=== PATIENT | female | born 1945 | race Caucasian/White ===

== ENCOUNTER → 2019-08-26 | Day surgery (SDC) | payer OTHER, MEDICARE ==
--- NOTE | 2019-08-26 11:16 | RAD REPORT ---
EXAM DESCRIPTION: Ultrasound-guided vacuum assisted right breast core biopsy CLINICAL HISTORY: Breast mass N63.0 COMPARISON: BREAST/AXILLA, LIMITED dated 08/16/2016; Follow Up Breast Axilla Comp dated 08/17/2019; 3D SCR ELI BILAT W/CAD dated 08/06/2019 FINDINGS: Informed consent was obtained and time-out was performed. The patient's right breast was prepped and draped in the usual sterile fashion. 1% lidocaine was used for local anesthetic purposes. Utilizing aseptic technique and ultrasound guidance, a 12 gauge vacuum assisted core biopsy device wa s used to obtain 2 core specimens through the mass of interest. A post biopsy clip was then placed. All collected material was sent for cytology. Patient tolerated procedure well. IMPRESSION: Successful ultrasound guided vacuum assisted right breast mass biopsy.
== END ==
LOC: DS 09:42
PROVIDERS: ATTEND Specialist
DX: C50.911 Malignant neoplasm of unspecified site of right female breast (principal); Z17.0 Estrogen receptor positive status [ER+]
CPT/HCPCS: 19083; 88305

== ENCOUNTER 2019-09-07 06:20 | Day surgery (SDC) | payer OTHER, MEDICARE ==
--- NOTE | 2019-09-04 16:40 | RAD REPORT ---
EXAM DESCRIPTION: Krystal Rosado (2 Views)09/04/2019 4:24 pm CLINICAL HISTORY: COPD Preop for lung surgery COMPARISON: None FINDINGS: The lungs are markedly hyperaerated. The lungs appear clear of acute infiltrate. The heart is normal size IMPRESSION: COPD without visualization of an acute abnormality
[2019-09-04 17:00] LABS: Absolute Lymphocytes (CBC) 2.8 K/uL (0.7-4.9); Hematocrit 46.5 % (36.0-45.0); Lymphocytes % 24.6 % (15.3-44.8); MPV 8.3 fL (7.6-11.3); RBC Red Blood Cell Count 4.83 M/uL (3.86-4.86)
[2019-09-04 17:15] LABS: Potassium 3.9 mmol/L (3.5-5.1)
[2019-09-07] MEDS ORDERED: Ringers Lactate 1,000 ML IV ONE (06:47)
[2019-09-07] MEDS ORDERED: CIPROFLOXACIN 400mg IV 400 MG/200 ML BAG IV ONE (06:47)
[2019-09-07] MEDS ORDERED: propofoL 200 MG/20 ML VIAL IV ONE (09:46)
[2019-09-07] MEDS ORDERED: FENTANYL CITR 100 MCG/2 ML ONE (09:46)
[2019-09-07] MEDS ORDERED: LIDOCAINE 1% MPF 5 ML VIAL ONE (09:46)
[2019-09-07] MEDS: METHYLENE BLUE 0.5% 10 ML AMP ONE ×2 (10:16→10:26)
[2019-09-07] MEDS ORDERED: KETOROLAC 30 MG/ML INJ ONE (10:18)
[2019-09-07] MEDS ORDERED: dexAMETHasone 10 MG/ML VIAL ONE (10:18)
[2019-09-07] MEDS ORDERED: NS 0.9% VIAL 10 ML ONE (10:27)
[2019-09-07] MEDS ORDERED: EPHEDRINE SULF 50 MG/ML VIAL ONE (10:27)
[2019-09-07] MEDS ORDERED: ONDANSETRON 4 MG/2 ML VIAL ONE ×2 (10:27→12:12)
[2019-09-07] MEDS: Ringers Lactate 1,000 ML IV ONE ×2 (11:00→11:20)
[2019-09-07] MEDS ORDERED: Phenylephrine HCl 10 MG/ML 1 ML VIAL ONE (11:04)
--- NOTE | 2019-09-07 11:26 | P.BOP ---
Preoperative diagnosis: right infiltrating ductal carcinoma Postoperative diagnosis: same Primary procedure: 1. Right breast wide lumpectomy neddle localized Secondary procedure: 2. Right axillary lymphnode dissection Engraver Signature: Manisha Tristan) Estimated blood loss: <10cc Specimen: axillary dissectiion, right breast mass Findings: Lesion within the specimen by Dr Montes De Oca, multiple axillary LN by dr Balbuena Anesthesia: General Complications: None Drain(s): SOTERO drain Transferred to: Recovery Room Condition: Good
--- NOTE | 2019-09-07 11:35 | RAD REPORT ---
EXAM DESCRIPTION: NM - Lymphoscintigraphy - 09/07/2019 7:41 am CLINICAL HISTORY: Breast cancer COMPARISON: None. TECHNIQUE: Four injections of 0.1 millicuries technetium filtered sulfur colloid administered into t he the moose arerolar region of the right breast. The injections were placed at Twelve o'clock, 3 o'cl ock, 6 o'clock and 9 o'clock positions. Subsequently a scintigram was obtained which demonstrated the radiotracer within these locations. IMPRESSION: Right breast lymphoscintigram
--- NOTE | 2019-09-07 11:37 | RAD REPORT ---
EXAM DESCRIPTION: US - Brst,Preop NL Wire Init w/Guid - 09/07/2019 8:00 am CLINICAL HISTORY: Breast cancer FINDINGS: The skin, subcutaneous tissues and breast tissue were anesthetized with lidocaine. Under sonographic guidance a Kopan's hook wire was placed into the 1.3 centimeter mass within the out er right breast. The patient then left for the surgical department IMPRESSION: Ultrasound-guided needle wire localization of a right breast mass
[2019-09-07] MEDS: HYDROMORPHONE HCL 2 MG/ML inj ONE ×4 (12:05→12:20)
--- NOTE | 2019-09-07 12:10 | RAD REPORT ---
EXAM DESCRIPTION: US - Surgical Specimen - 09/07/2019 11:19 am CLINICAL HISTORY: Breast cancer IMPRESSION: Ultrasound demonstrates the hypoechoic mass to be within the resected surgical specimen
[2019-09-07] MEDS ORDERED: CODEINE 30MG/APAP 300MG TAB ONE (13:03)
[2019-09-07 13:33] VITALS: TEMP 96.5
[2019-09-07 14:06] VITALS: BP 105/64; O2SAT 95
--- NOTE | 2019-09-07 21:18 | DS ---
Date of Discharge: 09/07/2019 Diagnosis: Right breast cancer. Procedure: 1.Right wide lumpectomy. 2.Right axillary lymph node dissection. Anesthesia: General plus local. Disposition: The patient will be discharged home. Activity: As tolerated, no heavy lifting Plan: Follow up in my office in 1 week. Call for appointment [phone]. Keep area dry until she see m kari again. Discharge Medications: Include Tylenol No. 3 q.4 hours p.r.n. pain and Cipro 500 p.o. q.12. The [facility] ient was instructed to record SOTERO output every 24 hours. DENNY/KINDRA Voice ID: [id number] Report ID: [id number]
--- NOTE | 2019-09-07 21:28 | OP ---
Date of Procedure: 09/07/2019 Surgeon: Clayton Arango MD Engineer Automated Equipment: Manisha Toscano. Preoperative Diagnosis: Right infiltrating ductal carcinoma. Postoperative Diagnosis: Right infiltrating ductal carcinoma. Procedures: 1.Right breast wide lumpectomy, needle localized. 2.Right axillary lymph node dissection. Specimen: Right breast and axillary lymph node. Findings: We sent the axillary lymph node to Dr. Sánchez, she sees at least 6-7 lymph nodes in that area and then Dr. Ramirez reviewed the needle within the specimen. Anesthesia: General plus local. Drains: SOTERO #10 for the axillary dissection. Indications: This is the case of a 74-year-old patient recently diagnosed with right breast cancer. The benefits, alternatives, and risks of excision in the process of right breast lumpectomy versus m astectomy. She preferred a lumpectomy with radiation therapy eventually and she also selected sentin el lymph node, possible axillary dissection with benefits, alternatives, and risks including, but not limited to infection, bleeding, damage to adjacent structures, anesthesia complication, chronic numb ness, chronic pain, arm edema, recurrence, OH, and even . She also understands this may not rel ieve any symptoms. She might need more than one surgical intervention. She understood, signed the c onsent. Description Of Procedure: The patient came this morning for 2 procedures; first, localization of the lump with the wire by Dr. Ramirez and also they injected the patient for sentinel lymph node localiz ation. The wire was left intact to avoid any dislodgement. The patient came to the operating room, placed in supine position. Anesthesia was done without complication. A blue dye was injected over t he area and then massaged for about 15 minutes. We put the probe in the area of the axilla. The num bers are not coming back the way we want to. We can barely get any trace of that material on the axi llary region. The patient may need to do further axillary dissection, but we are going to try in the area once again once we are scrubbed. The area was scrubbed in the usual sterile fashion. A time-o ut was called. At that moment, we proceeded to make a small incision of the axillary hairline. The probe was placed over that area, the gamma probe, but once again no signal found. We went all the wa y deeper in the axillary fat pad, no signal found. In that case, we cannot proceed the sentinel lymp h node, so we proceeded to do an axillary dissection of the area. We identified the pectoralis major removed level 1, level 2 axillary lymph nodes making sure the nerves were protected at all time, paresh g thoracic and thoracodorsal nerve, and also axillary vein and artery were protected at all times. W e sent the specimen to pathologist to verify there are lymph nodes in that area. They see at least 7 in that region and they still have more specimen to go. So at that moment, I irrigated the area due to the axillary dissection, we will leave a SOTERO drain exiting to 1 of the skin sites and secured in p lace with 3-0 nylon and closed the area with 3-0 chromic and then [place]. The area of lumpectomy, w e proceeded to put an incision over the area of the wire. This patient had a wide lumpectomy since w e are dealing with breast cancer. We put incision all the way down to the breast tissue and we proce eded to do a removal excision of the lump. When we sent the specimen out, the specimen and the needl es are intact by Dr. Ramirez. At that moment, we irrigated the area, obtained hemostasis again and t hen after that closed the area with 3-0 chromic and 4-0 PDS subcuticular fashion. Sponge count, inst rument counts were correct. Patient tolerated the procedure well. Patient is in her way to recovery in stable condition. DENNY/KINDRA Voice ID: [id number] Report ID: [id number]
--- NOTE | 2019-09-08 12:12 | EKG ---
Test Date: 2019-09-04 Test Time: 16:00:17 [employer]: HOLLIE MEASUREMENT RESULTS: Intervals: Rate: 69 HI: 184 QRSD: 86 QT: 420 QTc: 450 [place]: P: 81 HI: 184 QRS: -65 T: 84 INTERPRETIVE STATEMENTS: Normal sinus rhythm Left axis deviation Septal infarct, age undetermined Abnormal ECG No previous ECG available for comparison Electronically Signed On 09-08-19 12:09:38 CDT by Vic Araiza
== END 2019-09-07 14:11 | disposition home or self-care (01) ==
LOC: OR 06:20 → EDSTATUS 09:45 → OR 14:11
PROVIDERS: ATTEND Surgery
PROC: 0HBT0ZZ Excision of Right Breast, Open Approach (ICD-10-PCS; principal; 2019-09-07 09:45)
DX: C50.911 Malignant neoplasm of unspecified site of right female breast (principal); Z17.0 Estrogen receptor positive status [ER+]; Z11.59 Encounter for screening for other viral diseases; I10 Essential (primary) hypertension; E78.00 Pure hypercholesterolemia, unspecified; F32.9 Major depressive disorder, single episode, unspecified; F41.9 Anxiety disorder, unspecified; Z88.0 Allergy status to penicillin; Z88.2 Allergy status to sulfonamides; Z91.041 Radiographic dye allergy status; Z85.6 Personal history of leukemia; Z83.3 Family history of diabetes mellitus; Z82.49 Family history of ischemic heart disease and other diseases of the circulatory system
CPT/HCPCS: 93005; 85025; 80048; 36415; 88307; 88333; 71046; 76098; 19285; 78195; 19302; 38900; U0002; J2704; J2370; J1170; J3010; J1100; J7120 ×2; J2405 ×2; J0744; A9541; 88305

== ENCOUNTER 2021-11-12 10:28 | Inpatient (IN) | payer OTHER, MEDICARE ==
[2021-11-12 11:02] LABS: Absolute Lymphocytes (CBC) 1.7 K/uL (0.7-4.9); Hematocrit 43.5 % (36.0-45.0); Lymphocytes % 13.9 % (15.3-44.8); MCV 97.2 fL (80-100); RBC Red Blood Cell Count 4.48 M/uL (3.86-4.86)
--- NOTE | 2021-11-12 11:27 | RAD REPORT ---
EXAM DESCRIPTION: RAD - Chest Single View - 11/12/2021 11:22 am CLINICAL HISTORY: CONGESTION COMPARISON: Two view chest 11/10/2021 and 08/27/2019 TECHNIQUE: AP portable chest image was obtained 11/12/2021 11:22 am . FINDINGS: Chronic interstitial fibrotic lung pattern is present worse in each lung base. Pattern is not clearly different when adjusting for differences between PA and portable technique. No focal mass or consolidation. Hilar regions are stable. Trachea is midline. Heart and vasculature are normal. No measurable pleural effusion and no pneumothorax. No acute bony abnormality seen. No acute aortic findings suspected. IMPRESSION: No acute cardiopulmonary process. Chronic interstitial lung pattern matches comparison. Severity could mask early interstitial edema or infiltrate.
[2021-11-12 12:22] LABS: Potassium 3.6 mmol/L (3.5-5.1); Troponin High Sensitivity 4.7 pg/mL (<58.9)
--- NOTE | 2021-11-12 12:34 | RAD REPORT ---
EXAM DESCRIPTION: CT - Chest For Pe Angio - 11/12/2021 12:17 pm CLINICAL HISTORY: Cough, SOB, hypoxia, tachycardia COMPARISON: Chest Single View dated 11/12/2021 TECHNIQUE: Dynamically enhanced 3 mm thick images of the chest were obtained during administration o f approximately 150mL Isovue 370 IV contrast. Coronal and oblique MIP reconstruction images were gene rated and reviewed. Exam utilizes a protocol to evaluate the pulmonary arterial tree. All CT scans are performed using dose optimization technique as appropriate and may include automated exposure control or mA/KV adjustment according to patient size. FINDINGS: No pulmonary emboli are identified. The aorta as imaged shows no acute or suspicious finding. No pericardial thickening or effusion. Valdemar nary artery calcifications are present. Nonacute airspace consolidation or suspicious mass not identified. Scarring changes are present in th e lung nascimento. There is biapical scarring with bronchiectasis changes in the medial right apex. Areas of sub pleural scarring seen. Bronchial wall thickening is seen with multiple areas of bronchial occ lusion. Bronchial wall calcifications are present. No pleural effusion or pleural thickening. A few small nonspecific calcified and noncalcified hilar lymph nodes are present. No bulky lymphadeno michael. No chest wall masses or abnormal axillary lymphadenopathy. IMPRESSION: No pulmonary emboli identified. Underlying interstitial fibrotic changes are present with additional findings consistent with bronchi tis/ viral infiltrative process.
--- NOTE | 2021-11-12 12:43 | ER ---
Nurse's Notes [facility] Name: Kwabena Alvarez Age: 76 yrs Sex: Female : 1945 Arrival Date: 11/12/2021 Time: 10:32 Bed 14 Private MD: Diagnosis: Acute respiratory failure with hypoxia;Viral Bronchitis Presentation: 11/12 10:41 Chief complaint: Patient states: low O2 readings at home, SOB X 4 days, had CXR done on iw Saturday per Dr. Jansen, was clear, 81% on RA upon arrival to ER, reports cough X 2 days no fever , no chest pain, no hx of lung disease. Coronavirus screen: Client presents with at least one sign or symptom that may indicate coronavirus-19. Ebola Screen: Patient negative for fever greater than or equal to 101.5 degrees Fahrenheit, and additional compatible Ebola Virus Disease symptoms Patient denies exposure to infectious person. Patient denies travel to an Ebola-affected area in the 21 days before illness onset. No symptoms or risks identified at this time. Initial Sepsis Screen: Does the patient meet any 2 criteria? No. Patient's initial sepsis screen is negative. Does the patient have a suspected source of infection? No. Patient's initial sepsis screen is negative. Risk Assessment: Do you want to hurt yourself or someone else? Patient reports no desire to harm self or others. 10:41 Method Of Arrival: Wheelchair iw 10:41 Acuity: LUANNE 3 iw Triage Assessment: 10:45 General: Appears in no apparent distress. uncomfortable, Behavior is calm, cooperative, bp appropriate for age. Pain: Denies pain. EENT: No deficits noted. Neuro: No deficits noted. Cardiovascular: Rhythm is sinus rhythm. Respiratory: Reports shortness of breath Breath sounds with wheezes bilaterally. Onset: The symptoms/episode began/occurred at an unknown time. the patient has moderate shortness of breath. GI: No signs and/or symptoms were reported involving the gastrointestinal system. : No signs and/or symptoms were reported regarding the genitourinary system. Derm: No deficits noted. Musculoskeletal: No deficits noted. Historical: - Allergies: 10:43 PENICILLINS; iw 10:43 ; iw - Home Meds: 10:43 benazepril 10 mg oral tab 1 tab once daily [Active]; anastrozole 1 mg oral tab 1 tab iw once daily [Active]; simvastatin 40 mg Oral tab 1 tab once daily [Active]; amlodipine 5 mg tab 1 tab once daily [Active]; alprazolam 0.25 mg Oral tab as needed [Active]; metoprolol succinate 200 mg oral Tb24 1 tab once daily [Active]; - PMHx: 10:43 Hypertensive disorder; Hypercholesterolemia; iw - Social history:: Smoking status: Patient denies any tobacco usage or history of. Screenin:45 Abuse screen: Denies threats or abuse. Denies injuries from another. Nutritional bp screening: No deficits noted. Tuberculosis screening: No symptoms or risk factors identified. Fall Risk None identified. Assessment: 10:45 General: SEE TRIAGE NOTE. Cardiovascular: Patient's skin is warm and dry. bp Cardiovascular: Rhythm is sinus rhythm. Respiratory: Airway is patent Respiratory effort is even, unlabored. 12:00 Reassessment: No changes from previously documented assessment. Patient and/or family bp updated on plan of care and expected duration. Pain level reassessed. 20:28 General: attempted to call report. per Josefina nurse not available . lg3 Vital Signs: 10:41 Pulse 100; Resp 20 S; Pulse Ox 81% on R/A; iw 12:00 BP 134 / 75; Pulse 85; Resp 18; Pulse Ox 93% on 2 lpm NC; bp 20:23 BP 120 / 66; Pulse 83; Resp 19 S; Pulse Ox 94% on 3 lpm NC; lg3 ED Course: 10:32 Patient arrived in ED. bp 10:32 Mingo Jason DO is Attending Physician. ms3 10:43 Triage completed. iw 10:43 Alan Nur, RN is Primary Nurse. bp 10:45 Arm band placed on. iw 10:45 Patient has correct armband on for positive identification. Bed in low position. Call bp light in reach. Side rails up X2. 10:53 Inserted saline lock: 20 gauge in left forearm, using aseptic technique. Blood bp collected. 11:24 XRAY Chest (1 view) In Process Unspecified. EDMS 12:19 CT Chest For PE Angio In Process Unspecified. EDMS 12:43 Rayshawn Mckeon MD is Hospitalizing Provider. ms3 20:37 No provider procedures requiring assistance completed. Patient admitted, IV remains in lg3 place. intact, No redness/swelling at site. Administered Medications: 13:00 Drug: Albuterol 2.5 mg Route: Inhalation; bp 13:00 Drug: AtroVENT (ipratropium) Aerosol 0.5 mg Route: Inhalation; bp 13:00 Drug: SOLU-Medrol (methylPrednisoLONE) 125 mg Route: IVP; Site: left forearm; bp 13:20 Drug: Albuterol 2.5 mg Route: Inhalation; bp 15:57 Drug: AZITHromycin 500 mg Route: IVPB; Infused Over: 1 hrs; Site: left forearm; bp Medication: 20:38 VIS not applicable for this client. lg3 Outcome: 12:43 Decision to Hospitalize by Provider. ms3 20:38 Admitted to Med/surg accompanied by tech, with oxygen, Report called to Filemon henriquez 20:38 Condition: stable 20:38 Instructed on the need for admit, Demonstrated understanding of instructions. 21:15 Patient left the ED. [facility] Signatures: Dispatcher [employer] EDCarly Dickinson RN RN iw Martinez, Maria [facility] Alan Nur RN RN bp Gibson, Lacie, RN RN 3 Mingo Jason DO DO ms3
--- NOTE | 2021-11-12 12:43 | EDPHYS ---
Physician Documentation [facility] Name: Kwabena Alvarez Age: 76 yrs Sex: Female : 1945 Arrival Date: 11/12/2021 Time: 10:32 Bed 14 Private MD: ED Physician Mingo Jason HPI: 11/12 10:44 This 76 yrs old Unknown Female presents to ER via Wheelchair with complaints of ms3 Shortness Of Breath. 10:44 76-year-old female with past medical history of hypertension, hyperlipidemia presents ms3 for cough, shortness of breath that has been ongoing for 4 days. Patient states she had a chest x-ray performed by Dr. Jansen that was negative. Dr. Jansen instructed patient to come to the emergency department as patient's home oxygen saturations were in the 70s. Patient denies chest pain at this time. Patient states walking makes the shortness of breath better. Patient denies pain.. Historical: - Allergies: 10:43 PENICILLINS; iw 10:43 Sept; iw - Home Meds: 10:43 benazepril 10 mg oral tab 1 tab once daily [Active]; anastrozole 1 mg oral tab 1 tab iw once daily [Active]; simvastatin 40 mg Oral tab 1 tab once daily [Active]; amlodipine 5 mg tab 1 tab once daily [Active]; alprazolam 0.25 mg Oral tab as needed [Active]; metoprolol succinate 200 mg oral Tb24 1 tab once daily [Active]; - PMHx: 10:43 Hypertensive disorder; Hypercholesterolemia; iw - Social history:: Smoking status: Patient denies any tobacco usage or history of. ROS: 10:44 Constitutional: Negative for fever, and chills. Neck: Negative for injury, pain, and ms3 swelling, Cardiovascular: Negative for chest pain, and palpitations. 10:44 MS/Extremity: Negative for injury and deformity, Skin: Negative for injury, rash, and discoloration, Neuro: Negative for headache, weakness, numbness, tingling. Psych: Negative for depression, anxiety, suicide ideation, homicidal ideation, and hallucinations. 10:44 Respiratory: Positive for cough, shortness of breath. 10:44 All other systems are negative. Exam: 10:42 ECG was reviewed by the Attending Physician. ms3 10:44 Constitutional: This is a well developed, well nourished patient who is awake, alert, ms3 and in no acute distress. Head/Face: Normocephalic, atraumatic. Neck: Trachea midline, no cervical lymphadenopathy. Supple, full range of motion without nuchal rigidity, or vertebral point tenderness. No Meningismus. Chest/axilla: Normal chest wall appearance and motion. Nontender with no deformity. Cardiovascular: Regular rate and rhythm with a normal S1 and S2. No gallops, murmurs, or rubs. Normal PMI, no JVD. No pulse deficits. Abdomen/GI: Soft, non-tender, with normal bowel sounds. No distension or tympany. No guarding or rebound. No evidence of tenderness throughout. Skin: Warm, dry with normal turgor. Normal color with no rashes, no lesions, and no evidence of cellulitis. MS/ Extremity: Pulses equal, no cyanosis. Neurovascular intact. Full, normal range of motion. Neuro: Awake and alert, GCS 15, oriented to person, place, time, and situation. Cranial nerves II-XII grossly intact. Motor strength 5/5 in all extremities. Sensory grossly intact. Cerebellar exam normal. Normal gait. Psych: Awake, alert, with orientation to person, place and time. Behavior, mood, and affect are within normal limits. Vital Signs: 10:41 Pulse 100; Resp 20 S; Pulse Ox 81% on R/A; iw 12:00 BP 134 / 75; Pulse 85; Resp 18; Pulse Ox 93% on 2 lpm NC; bp 20:23 BP 120 / 66; Pulse 83; Resp 19 S; Pulse Ox 94% on 3 lpm NC; lg3 MDM: 10:42 Patient medically screened. ms3 10:44 Differential diagnosis: CHF exacerbation, Myocardial Infarction pneumonia, pulmonary ms3 edema, Pulmonary Embolism. 12:45 Data reviewed: vital signs, nurses notes, lab test result(s), radiologic studies, and ms3 as a result, I will admit patient. Data interpreted: director digital strategy: rate is 85 beats/min, rhythm is normal sinus rhythm, with no ectopy, Interpretation: normal rate, normal rhythm, Pulse oximetry: on room air is 81 %. Interpretation: hypoxia. Plan: O2 by NC applied. Counseling: I had a detailed discussion with the patient and/or guardian regarding: the historical points, exam findings, and any diagnostic results supporting the discharge/admit diagnosis, lab results, radiology results, the need for further work-up and treatment in the hospital. ED course: Discussed case with Dr. Mckeon and he accepts patient as admission. All questions were answered. Discussed plan for admission with patient and her they understand agree with plan. All questions were answered. Patient remains in stable condition in the emergency department. 11/12 10:43 Order name: Basic Metabolic Panel; Complete Time: 12:40 ms3 11/12 10:43 Order name: CBC with Diff; Complete Time: 12:40 ms3 11/12 10:43 Order name: Troponin HS; Complete Time: 12:40 ms3 11/12 13:03 Order name: CBC with Automated Diff EDMS 11/12 13:03 Order name: CBC with Automated Diff EDMS 11/12 13:03 Order name: Comprehensive Metabolic Panel EDMS 11/12 13:03 Order name: SARS RAPID eb 11/12 13:04 Order name: Comprehensive Metabolic Panel EDMS 11/12 13:04 Order name: Magnesium EDMS 11/12 13:04 Order name: Magnesium EDMS 11/12 13:04 Order name: Phosphorus EDMS 11/12 13:04 Order name: Phosphorus EDMS 11/12 13:27 Order name: Flu bp 11/12 13:27 Order name: SARS-COV-2 RT PCR (Document "Date of Onset" if Symptomatic) bp 11/12 13:27 Order name: RSV bp 11/12 13:27 Order name: ABG bp 11/12 14:07 Order name: Influenza Screen (A ; Complete Time: 16:38 EDMS 11/12 14:07 Order name: Respiratory Syncytial Virus Ag; Complete Time: 16:38 EDMS 11/12 14:08 Order name: Blood Culture Adult (2) ms3 11/12 14:08 Order name: CMP ms3 11/12 14:08 Order name: Lactate ms3 11/12 14:08 Order name: Protime (+inr) ms3 11/12 14:08 Order name: Ptt, Activated ms3 11/12 14:26 Order name: SARS-COV-2 RT PCR; Complete Time: 16:38 EDMS 11/12 15:09 Order name: ABG Arterial Blood Gas; Complete Time: 16:38 EDMS 11/12 15:10 Order name: Protime (+INR); Complete Time: 16:38 EDMS 11/12 15:10 Order name: PTT, Activated Partial Thromb; Complete Time: 16:38 EDMS 11/12 15:22 Order name: Lactate; Complete Time: 16:38 EDMS 11/12 15:23 Order name: Comprehensive Metabolic Panel; Complete Time: 16:38 EDMS 11/12 16:11 Order name: Procalcitonin; Complete Time: 16:38 EDMS 11/12 10:43 Order name: XRAY Chest (1 view); Complete Time: 12:40 ms3 11/12 10:43 Order name: EKG; Complete Time: 10:44 ms3 11/12 10:43 Order name: Cardiac monitoring; Complete Time: 10:46 ms3 11/12 10:43 Order name: EKG - Nurse/Tech; Complete Time: 10:45 ms3 11/12 10:43 Order name: IV Saline Lock; Complete Time: 10:53 ms3 11/12 10:43 Order name: Labs collected and sent; Complete Time: 10:53 ms3 11/12 10:43 Order name: O2 Per Protocol; Complete Time: 10:45 ms3 11/12 10:43 Order name: O2 Sat Monitoring; Complete Time: 10:45 ms3 11/12 10:43 Order name: CT Chest For PE Angio; Complete Time: 12:40 ms3 11/12 11:07 Order name: Labs - recollect needed: recollect chemistries hemolyzed/ lab printing eb label; Complete Time: 11:23 11/12 11:44 Order name: Labs - recollect needed: recollect the recollect inside lab paged; Complete eb Time: 11:44 11/12 12:45 Order name: consult Order-Jacinto Carr MD (Pulmonology); Complete Time: 12:47 ms3 11/12 13:03 Order name: CONS Physician Consult EDMS 11/12 13:03 Order name: Heart Healthy EDMS 11/12 14:08 Order name: Accucheck; Complete Time: 14:31 ms3 11/12 14:08 Order name: IV Saline Lock - Large Bore; Complete Time: 14:31 ms3 EC:42 Rate is 98 beats/min. Rhythm is regular. Left axis deviation noted. MN interval is ms3 normal. QT interval is normal. Clinical impression: NSR w/ Non-specific ST/T Changes. Interpreted by me. Reviewed by me. Administered Medications: 13:00 Drug: Albuterol 2.5 mg Route: Inhalation; bp 13:00 Drug: AtroVENT (ipratropium) Aerosol 0.5 mg Route: Inhalation; bp 13:00 Drug: SOLU-Medrol (methylPrednisoLONE) 125 mg Route: IVP; Site: left forearm; bp 13:20 Drug: Albuterol 2.5 mg Route: Inhalation; bp 15:57 Drug: AZITHromycin 500 mg Route: IVPB; Infused Over: 1 hrs; Site: left forearm; bp Disposition Summary: 11/12/21 12:43 Hospitalization Ordered Hospitalization Status: Inpatient Admission ms3 Provider: Rayshawn Mckeon ms3 Condition: Stable ms3 Problem: new ms3 Symptoms: are unchanged ms3 Bed/Room Type: Standard ms3 Location: Intensive Care Unit(11/12/21 20:04) cg Room Assignment: 8-(11/12/21 20:04) cg Diagnosis - Acute respiratory failure with hypoxia ms3 - Viral Bronchitis ms3 Forms: - Medication Reconciliation Form ms3 - SBAR form ms3 Signatures: Dispatcher [employer] EDCarly Dickinson RN RN Kim Dominguez RN RN cg Alan Nur RN RN bp Botello, Elizabeth eb Gibson, Lacie, RN RN 3 Mingo Jason DO DO ms3 Corrections: (The following items were deleted from the chart) 20:04 12:43 Telemetry/MedSurg (Inpatient) ms3 cg 20:04 12:43 ms3 cg
--- NOTE | 2021-11-12 12:59 | P.HP ---
Certification for Inpatient Patient admitted to: Inpatient With expected LOS: >2 Midnights Patient will require the following post-hospital care: None Practitioner: I am a practitioner with admitting privileges, knowledge of patient current condition, hospital course, and medical plan of care. Services: Services provided to patient in accordance with Admission requirements found in Title 42 Section 412.3 of the Code of Federal Regulations Patient History Date of Service: 11/12/21 Primary Care Provider: Dr. Jansen Reason for admission: Acute Hypoxic Respiratory Failure History of Present Illness: Mrs. Kwabena Alvarez is a pleasant 76 year old female who has a past medical history of right breast cancer s/p radiation and lumpectomy (August 2019), history of hairy cell leukemia s/p chemotherapy, hypertension, dyslipidemia, and anxiety who presents to the [facility] Emergency Department for shortness of breath. She reports that, over the last 3 days, she has been experiencing progressively worsening shortness of breath. She states that this has been associated with a cough productive of green sputum. She denies any obvious inciting or alleviating factors. She grades her symptoms as moderatesevere. She denies any recent sick contacts. She denies any recent travel. She denies any recent changes in medications. She measured her oxygen at home with a pulse oximeter and states that it was in the 70s80s. She called her PCP, Dr. Jansen, who recommended she present to the Emergency Department for further evaluation. On review of systems, she denies any fevers, chills, headaches, dizziness, syncope, weakness, chest pain, palpitations, wheezing, abdominal pain, nausea/vomiting, diarrhea, constipation, hematochezia, melena, dysuria, hematuria, myalgia, or any other symptoms. She presented to the Emergency Department for further evaluation. Upon presentation, her vital signs were notable for a heart rate of 100 bpm and an SpO2 of 81 % on room air. Her laboratory studies were notable for a WBC count of 12,400. Blood cultures x 2 were obtained. EKG revealed normal sinus rhythm without STEMI criteria. Chest x-ray revealed, "no acute cardiopulmonary process. Chronic interstitial lung pattern matches comparison. Severity could mask early interstitial edema or infiltrate." CT chest angiogram revealed, "no pulmonary emboli identified. Underlying interstitial fibrotic changes are present with additional findings consistent with bronchitis/ viral infiltrative process." Pulmonary Medicine was consulted in the Emergency Department, and recommendations are pending. In the Emergency Department, she was given methylprednisolone and azithromycin. She was admitted to the General Internal Medicine service for further evaluation. Allergies Iodinated Contrast Media Allergy (Verified 09/07/19 07:06) Rash Penicillins Allergy (Verified 06/03/11 11:50) Hives/Rash Sulfa (Sulfonamide Antibiotics) [Sulfa(Sulfonamide Antibiotics)] Allergy (Verified 06/03/11 11:50) Hives/Rash Home medications list reviewed: Yes Home Medications: ALPRAZolam [Xanax*] 0.25 mg PO BID PRN 09/04/19 Amitriptyline [Elavil*] 25 mg PO BEDTIME 09/04/19 Aspirin [Adult Low Dose Aspirin EC] 81 mg PO DAILY 09/04/19 Benazepril HCl 10 mg PO DAILY 09/04/19 Metoprolol Succinate [Toprol Xl] 200 mg PO DAILY 09/04/19 Simvastatin 40 mg PO DAILY 09/04/19 Amlodipine [Norvasc] 5 mg PO DAILY 11/12/21 Anastrozole [Arimidex] 1 mg PO DAILY 11/12/21 - Past Medical/Surgical History -: Right Breast Cancer -: Hairy Cell Leukemia -: Hypertension -: Dyslipidemia -: Anxiety -: Lumpectomy (August 2019) -: Bilateral Hip Replacements - Family History Family History: Reviewed- Non-Contributory - Social History Smoking Status: Former smoker Alcohol use: No CD- Drugs: No Caffeine use: No Review of Systems 10-point ROS is otherwise unremarkable General: Unremarkable Eyes: Unremarkable ENT: Unremarkable Respiratory: Cough, Shortness of Breath, Sputum (green) Cardiovascular: Unremarkable Gastrointestinal: Unremarkable Genitourinary: Unremarkable Musculoskeletal: Unremarkable Integumentary: Unremarkable Neurological: Unremarkable Lymphatics: Unremarkable Physical Examination - Vital Signs Blood Pressure: 134/75 Pulse: 100 Respirations: 20 Pulse Ox (%): 93 (2 L NC) - Physical Exam General: Alert, In no apparent distress, Oriented x3 HEENT: Atraumatic, PERRLA, Mucous membr. moist/pink, EOMI, Sclerae nonicteric Neck: Supple, JVD not distended Respiratory: Diminished, Crackles/rales, Rhonchi/gurgles Cardiovascular: No edema, Regular rate/rhythm, Normal S1 S2, No gallops, No rubs, No murmurs Gastrointestinal: Normal bowel sounds, Soft and benign, Non-distended, No tenderness, No rebound, No guarding Musculoskeletal: No clubbing Integumentary: No rashes Neurological: Normal speech, Cranial nerves 3-12 intact, Normal affect - Studies Laboratory Data (last 24 hrs) 11/12/21 11:52: Sodium 131 L, Potassium 3.6, BUN 7, Creatinine 0.67, Glucose 107 H 11/12/21 10:50: WBC 12.40 H, Hgb 14.5, Hct 43.5, Plt Count 322 Assessment and Plan - Plan # Acute Hypoxic Respiratory Failure - likely secondary to Viral Bronchitis Superimposed on Radiation Pneumonitis # Right Breast Cancer s/p Radiation and Lumpectomy (August 2019) # History of Hairy Cell Leukemia s/p Chemotherapy Currently, she is on 2 L nasal cannula, with improvement of her SpO2 readings to 93 %. - Evaluation thus far: - Procalcitonin = pending - ABG = pending - Chest x-ray = "no acute cardiopulmonary process. Chronic interstitial lung pattern matches comparison. Severity could mask early interstitial edema or infiltrate." - CT chest angiogram = "no pulmonary emboli identified. Underlying interstitial fibrotic changes are present with additional findings consistent with bronchitis/ viral infiltrative process." - Management plan: - Consulted Pulmonary Medicine and Dr. Carr notified - recommendations appreciated - Consulted Respiratory Therapy - Supplemental oxygen to maintain SpO2 > 92% - Started azithromycin for anti-inflammatory effect - Started DuoNebs q6hr - Started Methylprednisolone - PRN benzonatate, guaifenesin - Encouraged incentive spirometry - Hold anastrazole for now # Suspect Viral Sepsis likely secondary to Viral Bronchitis She meets sepsis criteria based on HR > 90 bpm and WBC > 12,000, and the suspected source is viral bronchitis. - Sepsis order set was initiated - Initial Lactate was ordered, trend - Blood cultures drawn before antibiotics were given - Broad spectrum antibiotics started: Azithromycin - In regards to fluids: - 30 mL/kg of IV fluids was not administered given SBP > 90, MAP > 65 # Hypertension - Hold home benazepril, amlodipine, metoprolol for now given concern for viral sepsis # Hyperlipidemia - Continue home simvastatin # Anxiety - Continue home PRN alprazolam to avoid benzodiazepine withdrawal Rayshawn Mckeon M.D. - Advance Directives Does patient have a Living Will: No Does patient have a Durable POA for Healthcare: No - Code Status/Comfort Care Code Status Assessed: Yes Code Status: Full Code
[2021-11-12] MEDS ORDERED: METHYLPREDNISOLONE 125 MG INJ ONE (13:19)
[2021-11-12] MEDS ORDERED: ALBUTEROL 2.5 MG/3 ML NEB SOL ONE (13:19)
[2021-11-12] MEDS ORDERED: IPRATROPIUM BROM 0.5MG/2.5ML ONE (13:20)
[2021-11-12 14:01] LABS: Arterial Blood Carboxyhemoglob 1.2 % (0-1.5); Blood Gas Oxyhemoglobin 84.1 % (94-97); Blood O2 Saturation 86.3 % (92-98.5)
[2021-11-12] MEDS ORDERED: IPRATROPIUM BROM 0.5MG/2.5ML NEB PRN (14:25)
[2021-11-12] MEDS ORDERED: ALBUTEROL 2.5 MG/3 ML NEB SOL NEB PRN (14:25)
[2021-11-12] MEDS ORDERED: GUAIFENESIN 600 MG SA TAB PO PRN (14:35)
[2021-11-12] MEDS ORDERED: AZITHROMYCIN 500 MG INJ IVPB ONE (15:03)
[2021-11-12] MEDS ORDERED: NA CHLORIDE 0.9% 250 ML ONE (15:03)
[2021-11-12 15:10] LABS: Protime INR 1.18
[2021-11-12 15:22] LABS: Albumin 3.3 g/dL (3.4-5.0); Bilirubin Total 0.6 mg/dL (0.2-1.0)
[2021-11-12 15:23] LABS: Potassium 3.4 mmol/L (3.5-5.1)
[2021-11-12] MEDS ORDERED: OSELTAMIVIR 75 MG CAP PO ONE (21:00)
[2021-11-12 21:30] VITALS: BMI 22.6
[2021-11-12] MEDS: ATORVASTATIN 20 MG TAB PO SCH (21:33)
[2021-11-12] MEDS: ALPRAZOLAM 0.5 MG TABLET PO PRN (21:33)
[2021-11-12] MEDS: AMITRIPTYLINE 25 MG TAB PO SCH (21:47)
[2021-11-13 04:53] LABS: Absolute Lymphocytes (CBC) 1.1 K/uL (0.7-4.9); Hematocrit 38.9 % (36.0-45.0); Lymphocytes % 7.2 % (15.3-44.8); RBC Red Blood Cell Count 4.05 M/uL (3.86-4.86)
[2021-11-13 05:13] LABS: Bilirubin Total 0.4 mg/dL (0.2-1.0); Magnesium 2.2 mg/dL (1.8-2.4); Potassium 3.4 mmol/L (3.5-5.1); Protein, Total 8.4 g/dL (6.4-8.2)
[2021-11-13] MEDS ORDERED: POTASSIUM CL SA 10 MEQ TAB PO ONE (07:09)
[2021-11-13] MEDS: ENOXAPARIN 40 MG/0.4 ML SQ SCH (08:49)
[2021-11-13] MEDS: OSELTAMIVIR 75 MG CAP PO SCH ×2 (08:49→22:46)
[2021-11-13] MEDS: METHYLPREDNISOLONE 40 MG INJ IV SCH ×2 (08:49→22:47)
[2021-11-13] MEDS: ASPIRIN EC 81 MG TAB PO SCH (08:49)
[2021-11-13] MEDS: DULERA 100/5 (MOMETASONE/FORMOTEROL) INHALER IH SCH ×2 (08:50→21:00)
[2021-11-13] MEDS ORDERED: HOME MED 1 EA UNK (Simvastatin [Simvastatin] 40 MG Tablet) PO SCH (09:00)
[2021-11-13] MEDS: ALPRAZOLAM 0.5 MG TABLET PO PRN (16:13)
[2021-11-13] MEDS: AZITHROMYCIN IV 500 MG in NA CHLORIDE 0.9% 250 ML IVPB SCH (19:14)
[2021-11-13] MEDS ORDERED: AZITHROMYCIN IV 500 MG in NA CHLORIDE 0.9% 250 ML IVPB SCH (21:00)
[2021-11-13] MEDS: ATORVASTATIN 20 MG TAB PO SCH (22:46)
[2021-11-13] MEDS: AMITRIPTYLINE 25 MG TAB PO SCH (22:46)
[2021-11-13] MEDS: ACETAMINOPHEN 500 MG TAB PO PRN (23:07)
[2021-11-13] MEDS: BENZONATATE 100 MG CAP PO PRN (23:08)
--- NOTE | 2021-11-14 02:31 | PN ---
Date of Progress Note: 11/13/2021 Subjective: The patient was seen this morning for followup. No new complaints or problems reported by patient. She was lying in bed in ICU as overflow patient and she was on nasal cannula oxygen. Th e patient called me yesterday single resource boss and informed me that she was having cough, congestion, so me wheezing, and shortness of breath and her oxygen saturation at home was dropping into the high 70s to low 80s and she was directed to come to emergency room. After she arrived in the emergency room, she was evaluated and admitted to the hospital. I did talk to hospitalist who admitted the patient yesterday and then I saw her. She was overall feeling better. Objective: Vital Signs: Reviewed. HEENT: Examination unremarkable. Lungs: Bilateral good equal air entry. Clear to auscultation. No wheezing. Minimal basal rales pr esent. Not using any accessory muscles of respiration. Abdomen: Soft. Bowel sounds normal. No guarding, rigidity, tenderness, or distention. Extremities: No leg edema. Laboratory Data: White count 14.5, hemoglobin 13.4, platelets 353. Sodium 133, potassium 3.4, chlor sukhi 96, bicarb 31, BUN 11, creatinine 0.81, glucose 130. Liver function tests unremarkable. Chest x -ray reviewed. CT scan of chest per PE protocol was negative for pulmonary embolism. Impression: 1.Acute exacerbation of chronic obstructive pulmonary disease. 2.Acute respiratory failure with hypoxia. 3.Influenza B. Plan: We will go ahead and continue Tamiflu. Continue current steroids, antibiotics, nebulizer danii tment and start the patient on Dulera inhaler per order. Continue current DVT prophylaxis. For hypo kalemia, oral potassium replacement was ordered. The patient was in ICU as overflow and hopefully we can move her out of ICU to regular room, once the room is available and I did call the patient's hus band and discussed details with him as well. Depending on her oxygen saturation level, we will have to make a decision whether she will need to go home with oxygen or not. SHIRLEY/MODL Voice ID: [id number] Report ID: [id number]
[2021-11-14] MEDS ORDERED: MAGNESIUM HYDROXIDE 8% 30 ML PO ONE (07:25)
[2021-11-14] MEDS ORDERED: POTASSIUM 25 MEQ EFFERV TAB PO ONE (08:00)
[2021-11-14] MEDS: DULERA 100/5 (MOMETASONE/FORMOTEROL) INHALER IH SCH ×2 (09:00→21:00)
[2021-11-14] MEDS: OSELTAMIVIR 75 MG CAP PO SCH ×2 (09:10→21:04)
[2021-11-14] MEDS: ENOXAPARIN 40 MG/0.4 ML SQ SCH (09:10)
[2021-11-14] MEDS: ASPIRIN EC 81 MG TAB PO SCH (09:10)
[2021-11-14] MEDS: METHYLPREDNISOLONE 40 MG INJ IV SCH ×2 (09:11→21:05)
[2021-11-14] MEDS: ALPRAZOLAM 0.5 MG TABLET PO PRN (14:40)
[2021-11-14] MEDS: AZITHROMYCIN IV 500 MG in NA CHLORIDE 0.9% 250 ML IVPB SCH (17:03)
[2021-11-14] MEDS ORDERED: NA CHLORIDE 0.9% 250 ML ONE (17:20)
[2021-11-14] MEDS: ATORVASTATIN 20 MG TAB PO SCH (21:05)
[2021-11-14] MEDS: AMITRIPTYLINE 25 MG TAB PO SCH (21:05)
--- NOTE | 2021-11-15 01:21 | PN ---
Date of Progress Note: 11/14/2021 Subjective: The patient was seen this morning for followup. The patient was lying in bed, not in an y distress, and had an uneventful day this morning. Objective: Vital Signs: Reviewed. HEENT: Examination unremarkable. Lungs: Clear to auscultation. Heart: Sounds normal. Abdomen: Soft. Bowel sounds normal. No guarding, rigidity, tenderness, or distention. Extremities: No leg edema. Impression: 1.Acute exacerbation of chronic obstructive pulmonary disease. 2.Influenza type B. 3.Hypertension. Plan: We will go ahead and request Social Service consultation to set up home oxygen as her room air oxygen saturation today was 85%. We will go ahead and continue current oxygen, steroids, antibiotic s etc. Social Service has initiated the home oxygen arrangements to be completed and I will see her tomorrow for followup. Possible discharge to go home tomorrow, depending on her condition. SHIRLEY/MODL Voice ID: [id number] Report ID: [id number]
[2021-11-15] MEDS: ALPRAZOLAM 0.5 MG TABLET PO PRN ×2 (01:30→14:20)
[2021-11-15] MEDS: ACETAMINOPHEN 500 MG TAB PO PRN (01:31)
--- NOTE | 2021-11-15 06:42 | EKG ---
Test Date: 2021-11-12 Test Time: 10:42:32 Louver Door Assembler: BP MEASUREMENT RESULTS: Intervals: Rate: 98 AR: 168 QRSD: 86 QT: 350 QTc: 446 [place]: P: 77 AR: 168 QRS: -64 T: 72 INTERPRETIVE STATEMENTS: Normal sinus rhythm RSR' or QR pattern in V1 suggests right ventricular conduction delay Left anterior fascicular block Septal infarct, age undetermined Abnormal ECG Compared to ECG 11/12/2021 10:41:18 No significant changes Electronically Signed On 11-15-21 06:32:41 CDT by Vic Araiza
--- NOTE | 2021-11-15 06:42 | EKG ---
Test Date: 2021-11-12 Test Time: 10:41:18 Cathode Ray Tube Salvage Processor: BP MEASUREMENT RESULTS: Intervals: Rate: 98 MI: 176 QRSD: 84 QT: 340 QTc: 434 [place]: P: 75 MI: 176 QRS: -65 T: 70 INTERPRETIVE STATEMENTS: Normal sinus rhythm Possible Left atrial enlargement RSR' or QR pattern in V1 suggests right ventricular conduction delay Left anterior fascicular block Septal infarct, age undetermined Abnormal ECG Compared to ECG 09/04/2019 16:00:17 RSR' in V1 or V2 now present Left anterior fascicular block now present Left-axis deviation no longer present Myocardial infarct finding still present Electronically Signed On 11-15-21 06:32:41 CDT by Vic Araiza
[2021-11-15] MEDS ORDERED: predniSONE 20 MG TAB PO SCH (08:00)
[2021-11-15] MEDS: ASPIRIN EC 81 MG TAB PO SCH (08:52)
[2021-11-15] MEDS: DULERA 100/5 (MOMETASONE/FORMOTEROL) INHALER IH SCH (08:52)
[2021-11-15] MEDS: OSELTAMIVIR 75 MG CAP PO SCH (08:52)
[2021-11-15] MEDS: ENOXAPARIN 40 MG/0.4 ML SQ SCH (08:52)
[2021-11-15] MEDS: BENZONATATE 100 MG CAP PO PRN (09:08)
[2021-11-15 11:52] VITALS: O2SAT 93
[2021-11-15 12:01] VITALS: BP 148/68; TEMP 97.9
[2021-11-15] MEDS ORDERED: AZITHROMYCIN 250 MG TAB PO SCH (18:00)
--- NOTE | 2021-11-15 22:49 | DS ---
Date of Discharge: 11/15/2021 Disposition: The patient discharged to go home. Physical Examination: HEENT: Unremarkable. Lungs: Clear to auscultation except minimal rales noted in right lung base, not using any accessory muscles of respiration. Heart: Sounds normal. Abdomen: Soft. Bowel sounds normal. No guarding, rigidity, tenderness, or distention. Extremities: No leg edema. Discharge Medications/instructions: 1.Continue all prior home medications. 2.Take new medication as prescribed below and prescription was sent to her Pharmacy from my office: a.Prednisone 10 mg, take 2 tablets by mouth daily for 4 days, then 1 tablet by mouth daily for 4 day s, then half tablet by mouth daily for 4 days, then stop, take it with food. b.Azithromycin 250 mg take 1 tablet by mouth daily with food for 5 days. c.Tamiflu 75 mg 1 capsule by mouth 2 times a day for 2 days. d.Oxygen 2 L/minute nasal cannula all the time. e.Use Dulera inhaler 100 mcg dose, take 2 puffs by mouth 2 times a day, rinse mouth with water after each use. 3.Follow up at my office next week on 11/22/2021. Call office for appointment. Hospital Course: This is a 76-year-old very pleasant female patient, admitted to the hospital with c ough, congestion, wheezing, shortness of breath. Please see dictated H and P for more information. After patient was evaluated in the emergency room, she was admitted to the hospital over the weekend with acute exacerbation of COPD and influenza B infection and acute respiratory failure problem. Aft er she was admitted to the hospital, oxygen replacement therapy was started. She was given IV antibi otic, which was azithromycin and IV steroid, which was Solu-Medrol. Home medications were continued. Overall, her condition improved over the period of this hospitalization. Chest x-ray and CT chest per PE protocol were done in the ER. There was no evidence of pulmonary embolism. The patient eileen nued to require oxygen 2 L/minute nasal cannula. We tried to stop oxygen and room air oxygen saturat ion was in the 85% range, so yesterday we requested Social Service to assist her with home oxygen set up and today after it was all arranged, she was discharged to go home in stable condition with above -mentioned medication and instructions. Final Diagnoses: 1.Acute exacerbation of chronic obstructive pulmonary disease. 2.Acute respiratory failure with hypoxia. 3.Influenza B with respiratory manifestation. 4.Hypertension. 5.Hyperlipidemia. 6.Anxiety. SHIRLEY/MODL Voice ID: [id number] Report ID: [id number]
== END 2021-11-15 16:44 | disposition home or self-care (01) | DRG 190 ==
LOC: ER 10:28 → ERHOLD 12:59 → 3RD-ICU 20:33 → 4TH 11-13 15:59
PROVIDERS: ADMIT Internal Medicine; ATTEND Internal Medicine
DX: J44.1 Chronic obstructive pulmonary disease with (acute) exacerbation (principal); J96.01 Acute respiratory failure with hypoxia; J10.1 Influenza due to other identified influenza virus with other respiratory manifestations; I10 Essential (primary) hypertension; E87.6 Hypokalemia; F41.9 Anxiety disorder, unspecified; E78.5 Hyperlipidemia, unspecified; Z88.0 Allergy status to penicillin; Z85.3 Personal history of malignant neoplasm of breast; Z88.1 Allergy status to other antibiotic agents; Z79.82 Long term (current) use of aspirin; Z91.041 Radiographic dye allergy status; Z79.899 Other long term (current) drug therapy; Z96.643 Presence of artificial hip joint, bilateral; Z87.891 Personal history of nicotine dependence; Z20.822 Contact with and (suspected) exposure to COVID-19
CPT/HCPCS: 36415; 71045; 71046; 71275; 80048; 80053; 82565; 82805; 83605; 83735; 84100; 84145; 84484; 85025; 85610; 85730; 87040; 87804; 87807; 93005; 94010; 94760; 96374; 96375; 99285; J0456; J1650; J2920; J2930; J3535; J7050; J7512; Q9967; U0003

== ENCOUNTER 2022-03-05 13:15 | Emergency (ER) | payer OTHER, MEDICARE ==
[2022-03-05] MEDS ORDERED: ACETAMINOPHEN 500 MG TAB ONE (13:53)
--- NOTE | 2022-03-05 14:09 | RAD REPORT ---
EXAM DESCRIPTION: CT - Head Brain Wo Cont - 03/05/2022 1:57 pm CLINICAL HISTORY: Head trauma, minor Trauma, head injury COMPARISON: No comparisons TECHNIQUE: All CT scans are performed using dose optimization technique as appropriate and may inclu de automated exposure control or mA/KV adjustment according to patient size. FINDINGS: No intracranial hemorrhage, hydrocephalus or extra-axial fluid collection.Mild brain atrop hy is present.No areas of brain edema or evidence of midline shift. Small posterior scalp hematoma. The paranasal sinuses and mastoids are clear. The calvarium is intact. IMPRESSION: No acute intracranial abnormality.
--- NOTE | 2022-03-05 14:17 | RAD REPORT ---
EXAM DESCRIPTION: CT - C Spine Wo Con - 03/05/2022 1:57 pm CLINICAL HISTORY: Neck trauma Trauma, neck injury COMPARISON: No comparisons FINDINGS: The cervical vertebral body heights are maintained. Disc thinning with posterior osteophyt e formation is notable at C5-6 and C6-7. No evidence of acute cervical spine fracture or subluxation. Mild degenerative anterolisthesis suspec richie of C 2 on 3 and C3 on 4. Prevertebral soft tissues are normal in thickness. Emphysematous upper lung nascimento. IMPRESSION: Negative for acute cervical spine abnormality. Moderate lower cervical degenerative spon dylosis. All CT scans are performed using dose optimization technique as appropriate and may include automated exposure control or mA/KV adjustment according to patient size.
--- NOTE | 2022-03-05 14:57 | EDPHYS ---
Physician Documentation [facility] Name: Kwabena Alvarez Age: 77 yrs Sex: Female : 1945 Arrival Date: 03/05/2022 Time: 13:19 Bed 18 Private MD: Violet Jansen C ED Physician Elian Kolb HPI: 03/05 13:45 This 77 yrs old Female presents to ER via Ambulatory with complaints of Fall Injury, en Head Injury-Adult. 13:45 77-year-old female with history of CAD on aspirin presents to the ED after fall off a en ladder 1 hour prior to arrival. Patient was on the fifth rung of the ladder when she lost her balance and fell backwards. She hit her head on the cement. No LOC. She is acting normal per . She presents complaining of head pain where she hit her head. No scalp laceration. She is moving all extremities without numbness, tingling or weakness. She is alert and oriented x3 with a GCS of 15 on arrival.. Historical: - Allergies: 13:43 PENICILLINS; iw 13:43 Sulfa (Sulfonamide Antibiotics); iw 15:03 Octra; ld1 - Home Meds: 13:43 alprazolam 0.25 mg Oral tab as needed [Active]; amlodipine 5 mg tab 1 tab twice a day iw [Active]; anastrozole 1 mg Oral tab 1 tab once daily [Active]; benazepril 10 mg Oral tab 1 tab once daily [Active]; metoprolol succinate 200 mg Oral Tb24 1 tab once daily [Active]; simvastatin 40 mg Oral tab 1 tab once daily [Active]; amitriptyline 25 mg Oral tab 1 tab once daily [Active]; - PMHx: 13:43 Hypercholesterolemia; Hypertensive disorder; iw - PSHx: 13:43 hips; iw - Immunization history:: Adult Immunizations up to date, Client reports receiving the 2nd dose of the Covid vaccine. - Immunization history: Last tetanus immunization: - up to date. - Social history:: Smoking status: Patient denies any tobacco usage or history of. Patient/guardian denies using alcohol. ROS: 13:45 Constitutional: Negative for fever, chills, and weight loss. en 13:45 Abdomen/GI: Negative for nausea, vomiting, and diarrhea. 13:45 Neuro: Positive for headache, Negative for altered mental status, loss of consciousness. 13:45 All other systems are negative. Exam: 13:45 Constitutional: This is a well developed, well nourished patient who is awake, alert, en and in no acute distress. Eyes: Pupils equal round and reactive to light, extra-ocular motions intact. Lids and lashes normal. Conjunctiva and sclera are non-icteric and not injected. Cornea within normal limits. Periorbital areas with no swelling, redness, or edema. ENT: Nares patent. No nasal discharge, no septal abnormalities noted. Tympanic membranes are normal and external auditory canals are clear. No hemotympanums. Oropharynx with no redness, swelling, or masses, exudates, or evidence of obstruction, uvula midline. Mucous membranes moist. Cardiovascular: Regular rate and rhythm with a normal S1 and S2. No gallops, murmurs, or rubs. Normal PMI, no JVD. No pulse deficits. Respiratory: Lungs have equal breath sounds bilaterally, clear to auscultation and percussion. No rales, rhonchi or wheezes noted. No increased work of breathing, no retractions or nasal flaring. Abdomen/GI: Soft, non-tender, with normal bowel sounds. No distension or tympany. No guarding or rebound. No evidence of tenderness throughout. Neuro: Awake and alert, GCS 15, oriented to person, place, time, and situation. Cranial nerves II-XII grossly intact. Motor strength 5/5 in all extremities. Sensory grossly intact. Cerebellar exam normal. Normal gait. 13:45 Head/face: Noted is Parieto-occipital cephalhematoma without laceration.. Vital Signs: 13:42 BP 158 / 84; Pulse 72; Resp 16; Temp 97.6; Pulse Ox 99% on R/A; Weight 65.77 kg; Height iw 5 ft. 5 in. (165.10 cm); 14:15 BP 149 / 79; Pulse 71; Resp 18; Pulse Ox 99% on R/A; Pain 3/10; ld1 13:42 Body Mass Index 24.13 (65.77 kg, 165.10 cm) iw Anna Coma Score: 15:02 Eye Response: spontaneous(4). Verbal Response: oriented(5). Motor Response: obeys ld1 commands(6). Total: 15. Trauma Score (Adult): 15:02 Eye Response: spontaneous(1); Verbal Response: oriented(1); Motor Response: obeys ld1 commands(2); Systolic BP: > 89 mm Hg(4); Respiratory Rate: 10 to 29 per min(4); [place] Score: 15; Trauma Score: 12 MDM: 13:36 Patient medically screened. snw 13:45 Differential diagnosis: closed head injury, contusion, fracture. Data reviewed: vital en signs, nurses notes, radiologic studies, CT scan. ED course: 77-year-old female status post fall. Vital signs normal, exam negative other than a parieto-occipital cephalhematoma. Will get CT imaging of the head and neck to rule out intracranial injury given height of fall. Tylenol for headache.. 14:55 Data reviewed: radiologic studies, CT scan, No acute intracranial injury appreciated on en head CT. 14:55 ED course: Reviewed imaging with patient and family. Will DC home with Motrin as needed en for headache. Acute ER return precautions reviewed. 03/05 13:44 Order name: CT Head Brain wo Cont en 03/05 13:44 Order name: CT C Spine en 03/05 13:48 Order name: Head Brain Wo Cont; Complete Time: 14:55 EDMS 03/05 13:50 Order name: C Spine Wo Con; Complete Time: 14:55 EDMS Administered Medications: 13:53 Drug: Tylenol 1000 mg Route: PO; ld1 Disposition Summary: 03/05/22 14:56 Discharge Ordered Location: Home en Problem: new en Symptoms: have improved en Condition: Stable en Diagnosis - Unspecified injury of head, initial encounter en Followup: en - With: Violet Jansen MD - When: As needed - Reason: Discharge Instructions: - Discharge Summary Sheet en - Head Injury, Adult en Forms: - Medication Reconciliation Form en - Thank You Letter en - Antibiotic Education en - Prescription Opioid Use en Signatures: Dispatcher [employer] EDMS Aislinn Fuentes FNP-C BOLT SORTER-Csnw Carly Hassan RN RN iw Tracey Dawn RN RN ld1 Darline Randolph PA PA en
--- NOTE | 2022-03-05 14:57 | ER ---
Nurse's Notes [facility] Name: Kwabena Alvarez Age: 77 yrs Sex: Female : 1945 Arrival Date: 03/05/2022 Time: 13:19 Bed 18 Private MD: Violet Jansen C Diagnosis: Unspecified injury of head, initial encounter Presentation: 03/05 13:41 Chief complaint: Patient states: fell off 4 ft ladder , hit her head, no LOC, takes ASA iw daily. 13:41 Acuity: LUANNE 3 iw 13:42 Method Of Arrival: Ambulatory iw 13:42 Coronavirus screen: At this time, the client does not indicate any symptoms associated iw with coronavirus-19. Ebola Screen: Patient negative for fever greater than or equal to 101.5 degrees Fahrenheit, and additional compatible Ebola Virus Disease symptoms Patient denies exposure to infectious person. Patient denies travel to an Ebola-affected area in the 21 days before illness onset. No symptoms or risks identified at this time. Initial Sepsis Screen: Does the patient meet any 2 criteria? No. Patient's initial sepsis screen is negative. Does the patient have a suspected source of infection? No. Patient's initial sepsis screen is negative. Risk Assessment: Do you want to hurt yourself or someone else? Patient reports no desire to harm self or others. Onset of symptoms was March 05, 2022. 15:02 Care prior to arrival: None. Mechanism of Injury: No Mechanism of Injury. Trauma event ld1 details: Injury occurred in the [facility]. Historical: - Allergies: 13:43 PENICILLINS; iw 13:43 Sulfa (Sulfonamide Antibiotics); iw 15:03 ; ld1 - Home Meds: 13:43 alprazolam 0.25 mg Oral tab as needed [Active]; amlodipine 5 mg tab 1 tab twice a day iw [Active]; anastrozole 1 mg Oral tab 1 tab once daily [Active]; benazepril 10 mg Oral tab 1 tab once daily [Active]; metoprolol succinate 200 mg Oral Tb24 1 tab once daily [Active]; simvastatin 40 mg Oral tab 1 tab once daily [Active]; amitriptyline 25 mg Oral tab 1 tab once daily [Active]; - PMHx: 13:43 Hypercholesterolemia; Hypertensive disorder; iw - PSHx: 13:43 hips; iw - Immunization history:: Adult Immunizations up to date, Client reports receiving the 2nd dose of the Covid vaccine. - Immunization history: Last tetanus immunization: - up to date. - Social history:: Smoking status: Patient denies any tobacco usage or history of. Patient/guardian denies using alcohol. Screenin:15 [facility] ED Fall Risk Assessment (Adult) History of falling in the last 3 months, ld1 including since admission No falls in past 3 months (0 pts). Abuse screen: Denies threats or abuse. Denies injuries from another. Nutritional screening: No deficits noted. Tuberculosis screening: No symptoms or risk factors identified. Primary Survey: 15:01 NO uncontrolled hemorrhage observed. Breathing/Chest: Spontaneous respiratory effort, ld1 equal unlabored respirations, breath sounds clear bilaterally, regular pattern, symmetrical chest rise and fall. Circulation: No external hemorrhage present. Regular and strong central pulse, skin warm/dry/normal color. Disability Client is alert. Exposure/Environment: All clothing and personal items were removed. Forensic evidence collection is not deemed to be indicated at this time. Items placed in patient belonging bag. Reassessment Breathing: Spontaneous respiratory effort, equal unlabored respirations, breath sounds clear bilaterally, regular pattern with symmetrical chest rise and fall. Circulation: No external hemorrhage noted. Regular and strong central pulse, skin warm/dry/normal color. Disability: Alert. 15:02 Reassessment Alertness and Airway: Awake and alert. The airway is patent. ld1 Assessment: 14:15 General: Appears in no apparent distress. comfortable, Behavior is calm, cooperative, ld1 appropriate for age. 14:15 Pain: Complains of pain in scalp Pain does not radiate. Pain currently is 7 out of 10 ld1 on a pain scale. Quality of pain is described as throbbing. Neuro: Level of Consciousness is awake, alert, obeys commands, Oriented to person, place, time, situation. Cardiovascular: Capillary refill < 3 seconds Patient's skin is warm and dry. Respiratory: Airway is patent Respiratory effort is even, unlabored. GI: Abdomen is flat, non-distended. : No signs and/or symptoms were reported regarding the genitourinary system. EENT: No signs and/or symptoms were reported regarding the EENT system. Derm: No signs and/or symptoms reported regarding the dermatologic system. Musculoskeletal: No signs and/or symptoms reported regarding the musculoskeletal system. Vital Signs: 13:42 BP 158 / 84; Pulse 72; Resp 16; Temp 97.6; Pulse Ox 99% on R/A; Weight 65.77 kg; Height iw 5 ft. 5 in. (165.10 cm); 14:15 BP 149 / 79; Pulse 71; Resp 18; Pulse Ox 99% on R/A; Pain 3/10; ld1 13:42 Body Mass Index 24.13 (65.77 kg, 165.10 cm) iw Anna Coma Score: 15:02 Eye Response: spontaneous(4). Verbal Response: oriented(5). Motor Response: obeys ld1 commands(6). Total: 15. Trauma Score (Adult): 15:02 Eye Response: spontaneous(1); Verbal Response: oriented(1); Motor Response: obeys ld1 commands(2); Systolic BP: > 89 mm Hg(4); Respiratory Rate: 10 to 29 per min(4); [place] Score: 15; Trauma Score: 12 ED Course: 13:19 Patient arrived in ED. mr 13:20 Violet Jansen MD is Private Physician. mr 13:28 Aislinn Fuentes FNP-C is PHCP. snw 13:28 Elian Kolb MD is Attending Physician. snw 13:42 Triage completed. iw 13:43 PHCP role handed off by Aislinn Fuentes FNP-C en 13:43 Darline Randolph PA is PHCP. en 13:45 Arm band placed on. iw 13:48 Tracey Dawn, LACIE is Primary Nurse. ld1 13:59 Head Brain Wo Cont In Process Unspecified. EDMS 13:59 C Spine Wo Con In Process Unspecified. EDMS 14:15 Patient has correct armband on for positive identification. Placed in gown. Bed in low ld1 position. Call light in reach. Side rails up X2. monitor technician on. Pulse ox on. NIBP on. Door closed. Noise minimized. Warm blanket given. 14:15 No provider procedures requiring assistance completed. Patient did not have IV access ld1 during this emergency room visit. 14:56 Violet Jansen MD is Referral Physician. en 15:02 Patient maintains SpO2 saturation greater than 95% on room air. ld1 15:03 Thermoregulation: warm blanket given to patient. ld1 Administered Medications: 13:53 Drug: Tylenol 1000 mg Route: PO; ld1 Medication: 14:15 VIS not applicable for this client. ld1 Intake: 15:02 PO: 150ml (Water); Total: 150ml. ld1 Outcome: 14:15 Discharged to home ambulatory, with family. ld1 14:15 Condition: stable 14:15 Discharge instructions given to patient, Instructed on discharge instructions, follow up and referral plans. Demonstrated understanding of instructions, follow-up care. 14:56 Discharge ordered by MD. en 15:02 Patient's length of stay was not longer than 2 hours. ld1 15:04 Patient left the ED. ld1 Signatures: Dispatcher [employer] EDMS Aislinn Fuentes, REGINALDC SALES ORDER CLERK-CsnKaylene Clark Carly Hassan, RN RN iw Tracey Dawn RN RN ld1 Darline Randolph PA PA en Corrections: (The following items were deleted from the chart) 13:45 13:42 Pulse 72bpm; Resp 16bpm; Pulse Ox 99% RA; Temp 97.6F; iw iw
[2022-03-05 16:07] VITALS: TEMP 97.6; O2SAT 99
[2022-03-05 16:08] VITALS: BP 149/79
== END 2022-03-05 15:04 | disposition home or self-care (01) ==
LOC: ER 13:15
DX: S09.90XA Unspecified injury of head, initial encounter (principal); I10 Essential (primary) hypertension; E78.00 Pure hypercholesterolemia, unspecified; Z88.0 Allergy status to penicillin; Z88.2 Allergy status to sulfonamides; Z88.8 Allergy status to other drugs, medicaments and biological substances
CPT/HCPCS: 70450; 72125; 99284